=== PATIENT | male | born 1980 | race Caucasian/White ===

== ENCOUNTER 2025-06-03 13:24 | Emergency (ER) | payer OTHER, SELFPAY ==
[2025-06-03 13:25] VITALS: BP 165/96; PULSE 95; RESP 18; TEMP 36.9; O2SAT 96; BMI 38.5
--- OUTSIDE RECORDS SUMMARY | 2025-06-03 13:32 | XMS_ITS | Patient Health Record ---
Author Organization [facility] Address [address] [facility] [address] Support Name Relationship Address Phone Mitra Fuentes Guarantor Unknown Unavaila ble Reason For Referral No Information Plan Of Treatment No Information Insurance Providers Payer Name Payer Address Payer Phone Subscriber Number Group Number Insured Name Patient Relationship to Insured Coverage Start Date Coverage End Date [facility] [address] [place] [id number] Mitra Fuentes Self - patient is the insured
--- OUTSIDE RECORDS SUMMARY | 2025-06-03 13:32 | XMS_ITS | Encounter Summary ---
Author Organization [facility] Address [address] [place] [address] Care Team Providers Care Exploration Driller Name Role Phone Kj Aldana DO Primary Care Provider + Kj Aldana DO Unavailable [phone] Kj Aldana DO Unavailable Source Comments Please be aware that You and/or your organization are solely responsible for the use, security, privacy, and any decisions made with any information you receive from [employer] Encounter Details Date Type Department Care Team (Late st Contact Info) Description 09/30/2023 [facility] Health Information Management [address] [place] [address] Provider, Not In System, COOKING TEACHER-C Provider Not in System Social History Tobacco Use Types Packs/Day Years Used Date Smoking Tobacco: Every Day Cigarettes 0.5 15 Smokeless Tobacco: Never Alcohol Use Standard Drinks/Week Comments Yes 1 (1 standard drink = 0.6 oz pur e alcohol) PHQ-2 Answer Date Recorded Patient Health Questionnaire-2 Score 0 09/27/2023 Sex and Gender Information Value Date Recorded Sex Assigned at Not on file Legal Sex Male 4:32 PM EST Gender Identity Not on file Sexual Orientation Not on file documented as of this encounter Plan of Treatment Not on file documented as of this encounter Visit Diagnoses Not on filedocumented in this encounter Additional Health Concerns Assessment Noted Time A fall risk assessment has been complete d for the patient 09/27/2023 1:13 PM EST documented as of this encounter Care Teams Exploration Driller Relationship Specialty Start Date End Date Kj Aldana DO PCP - General Family Medicine 08/13/23 Kj Aldana DO [address] [facility] [address] [place] [address] PCP - [facility] Community Care Attributed Provider 12/29/23 11/26/24 Kj Aldana DO [address] [facility] [address] [place] [address] PCP - Morgan CFD Attributed Provider 09/27/24 documented as of this encounter
--- OUTSIDE RECORDS SUMMARY | 2025-06-03 13:32 | XMS_ITS | Clinical Summary ---
Author Organization [facility] Address [address] [place] [id number] Care Team Providers Care Paper Conservator Name Role Phone Kj Aldana DO Primary Care Provider + Kj Aldana DO Unavailable [phone] Allergies No known active allergies Medications Eliquis 5 MG tabletIndication s:Morbid obesity (HCC),Hypertensi on, unspecified type,Atrial fibrillation, unspecified type (HCC),Dyslipidem ia TAKE 1 TABLET BY MOUTH EVERY MORNING AND EVERY NIGHT AT BEDTIME 180 tablet 1 09/09/2024 Active fenofibrate (Tricor) 145 MG tabletIndication s:Morbid obesity (HCC),Hypertensi on, unspecified type,Atrial fibrillation, unspecified type (HCC),Dyslipidem ia Take 1 tablet (145 mg total) by mouth 1 (one) time each day. 90 tablet 09/17/2024 Active metoprolol succinate XL (Toprol-XL) 25 MG 24 hr tabletIndication s:Morbid obesity (HCC),Hypertensi on, unspecified type,Atrial fibrillation, unspecified type (HCC),Dyslipidem ia TAKE 1 TABLET(25 MG) BY MOUTH 1 TIME EACH DAY 90 tablet 09/17/2024 Active olmesartan-hydro CHLOROthiazide (BENIcar HCT) 40-12.5 MG tabletIndication s:Morbid obesity (HCC),Hypertensi on, unspecified type,Atrial fibrillation, unspecified type (HCC),Dyslipidem ia Take 1 tablet by mouth 1 (one) time each day. 90 tablet 1 09/17/2024 Active Active Problems No known active problems Encounters Date Type Department Care Team Description 04/20/2025 Orders Only [facility] Internal Medicine [address] [place] [address] Kj Aldana, Morbid (severe) obesity due to excess calories (Primary Dx) from Last 3 Months Social History Tobacco Use Types Packs/Day Years Used Date Smoking Tobacco: Every Day Cigarettes 0.5 15 Smokeless Tobacco: Never Tobacco Cessation:Ready to Q uit: Not Asked; Counseling Given: Not Answered Alcohol Use Standard Drinks/Week Comments Yes 1 (1 standard drink = 0.6 oz pur e alcohol) AUDIT-C Answer Date Recorded Q1: How often do you have a drink containing alc ohol? 2-4 times a month 11/28/2023 Q2: How many drinks containi ng alcohol do you have on a typical day when you are drinking? 1 or 2 11/28/2023 Frequency of Binge Drinking Not on file 07/2023 PHQ-2 Answer Date Recorded Patient Health Questionnaire-2 Score 0 10/01/2024 Sex and Gender Information Value Date Recorded Sex Assigned at Not on file Legal Sex Male 4:32 PM EST Gender Identity Not on file Sexual Orientation Not on file Last Filed Vital Signs Vital Sign Reading Time Taken Comments Blood Pressure 122/66 10/01/2024 8:05 AM EST Pulse 82 10/01/2024 8:05 AM EST Temperature 36.8 C (98.3 F) 10/01/2024 8:05 AM EST Respiratory Rate 18 11/28/2023 11:29 AM EDT Oxygen Saturation 97% 10/01/2024 8:05 AM EST Inhaled Oxygen Concentration - - Weight 142 kg (314 lb) 10/01/2024 8:05 AM EST Height 185.4 cm (6' 1 ) 10/01/2024 8:05 AM EST Body Mass Index 41.43 10/01/2024 8:05 AM EST Plan of Treatment Health Maintenance Due Date Last Done Comments CT Colonography 1980 Cologuard 1980 Colonoscopy 1980 Colorectal Cancer Screening 1980 FIT 1980 FOBT 1980 HIV Screening 1980 Sigmoidoscopy 1980 MMR Vaccines (1 of 1 - Standard series) 02/12/1981 Varicella Vaccines (1 of 2 - 13+ 2-dose series) 02/12/1993 DTaP/Tdap/Td Vaccines (1 - Tdap) 02/12/1999 Hepatitis B Vaccines (1 of 3 - 19+ 3-dose series) 02/12/1999 Pneumococcal: Pediatrics (0 to 5 Yrs) and At-Risk Patients (6 to 49 Years) (1 of 2 - PCV) 02/12/1999 HPV Vaccines (1 - 3-dose SCD M series) 02/12/2007 COVID-19 Vaccine (1 - 2023-2 5 season) 2025 Influenza Vaccine (#1) 2025 Depression Screening 10/01/2025 10/01/2024 Obesity Intervention 10/01/2025 10/01/2024, 09/04/2024, 09/27/2023 Annual Physical 10/02/2025 10/01/2024 Diabetes Screening 09/20/2027 09/20/2024, 11/19/2023, 11/19/2023 Lipid Panel 09/20/2029 09/20/2024, 11/19/2023 Zoster Vaccines (1 of 2) 02/12/2030 Respiratory Syncytial Virus (RSV) 60 years and older and/or patients (1 - 1-dose 75+ series) 02/12/2055 Hepatitis A Vaccines Aged Out No long er eligible based on patient's age to complete this topic Meningococcal B Vaccine Aged Out No l onger eligible based on patient's age to complete this topic Meningococcal Vaccine Aged Out No flavia gary eligible based on patient's age to complete this topic Respiratory Syncytial Virus (RSV) <20 months Aged Out No longer eligible b ased on patient's age to complete this topic Procedures Procedure Name Priority Date/Time Associated Diagnosis Comments COMPREHENSIVE METABOLIC PANEL Routine 09/20/2024 7:17 AM EST Morbid obesity Hypertension, unspecified type LIPID PANEL Routine 09/20/2024 7:17 AM EST Morbid obesity Hypertension, unspecified type from Last 3 Months or Most Recently Relevant to Health Maintenance Results * (ABNORMAL) Lipid Panel (09/20/2024 7:17 AM EST) Triglycerides 242(H) <=150 mg/dL 09/20/2024 8:44 AM EST [facility] Cholesterol, Total 149.00 0.00 - 200.00 mg/dL 09/20/2024 8:44 AM EST [facility] HDL Cholesterol 33.40(L) >=40.00 mg/dL 09/20/2024 8:44 AM EST [facility] LDL Cholesterol, Calc 67.2 <=130.0 mg/dL 09/20/2024 8:44 AM EST [facility] Comment: Reference range <130 Normal 130-150 Borderline >159 High Risk Chol/HDL Ratio 4.5 09/20/2024 8:44 AM EST [facility] LDL/HDL Ratio 2.0 09/20/2024 8:44 AM EST [facility] VLDL, Calculated 48 mg/dL 09/20/19 8:44 AM EST [facility] Non-HDL Cholesterol 116 mg/dL 09/20/2024 8:44 AM EST [facility] Blood Venous blood specimen / Unknown Venipuncture / Unknown 09/20/2024 7:17 AM EST 09/20/2024 7:17 AM EST us Kj Aldana DO LAB BLOOD ORDERABLES Fin al Result [facility] [address] [place] [address], * Comprehensive Metabolic Panel (CMP) (09/20/2024 7:17 AM EST) Sodium 138 136 - 145 mmol/L 09/20/2024 8:44 AM EST [facility] Potassium 3.7 3.5 - 5.1 mmol/L 09/20/2024 8:44 AM EST [facility] Chloride 103 98 - 107 mmol/L 09/20/2024 8:44 AM EST [facility] Carbon Dioxide 23.5 22.0 - 29.0 mmol/L 09/20/2024 8:44 AM [facility] Anion Gap 12 3 - 20 mmol/L 09/20/2024 8:44 AM [facility] BUN 23.7 6.0 - 26.0 mg/dL 09/20/2024 8:44 AM [facility] Creatinine 0.80 0.70 - 1.20 mg/dL 09/20/2024 8:44 AM [facility] BUN/Creatinine Ratio 29.6 09/20/2024 8:44 AM [facility] Glucose 104 70 - 109 mg/dL 09/20/2024 8:44 AM [facility] Calcium 8.9 8.6 - 10.0 mg/dL 09/20/2024 8:44 AM [facility] AST 34 0 - 40 U/L 09/20/2024 8:44 AM [facility] ALT 34 0 - 41 U/L 09/20/2024 8:44 AM [facility] Alkaline Phosphatase 47 40 - 130 U/L 09/20/2024 8:44 AM [facility] Protein, Total 7.8 6.6 - 8.7 g/dL 09/20/2024 8:44 AM [facility] Albumin 3.90 3.50 - 5.20 g/dL 09/20/2024 8:44 AM [facility] Globulin 3.9 g/dL 09/20/2024 8:44 AM [facility] A/G Ratio 1.0 09/20/2024 8:44 AM [facility] Bilirubin, Total 0.43 0.00 - 1.20 mg/dL 09/20/2024 8:44 AM [facility] Osmolality Calc 271 mosm/kg 8:44 AM [facility] eGFR 111.9 >=60.0 mL/min/{1. 73_m2} 09/20/2024 8:44 AM [facility] Comment: GFR calculated based on CKD-EPI 2020 Creatinine Equation Age (Years) Average GFR 20-29 116 mL/min/1.73 m2 30-39 107 mL/min/1.73 m2 40-49 99 mL/min/1.73 m2 50-59 93 mL/min/1.73 m2 60-69 85 mL/min/1.73 m2 70+ 75 mL/min/1.73 m2 Acceptable GFR: >= 60 mL/min/1.73 m2 Chronic Kidney Disease: <60 mL/min/1.73 m2 Kidney Failure: <15 mL/min/1.73 m2 Blood Venous blood specimen / Unknown Venipuncture / Unknown 09/20/2024 7:17 AM EST 09/20/2024 7:17 AM EST Kj Aldana DO LAB BLOOD ORDERABLES Fin al Result [address] [id number] from Last 3 Months or Most Recently Relevant to Health Maintenance Insurance [employer] Care Teams Paper Conservator Relationship Specialty Start Date End Date Kj Aldana DO PCP - General Family Medicine 08/13/23 Kj Aldana DO [address] [facility] [address] [place] [address] PCP - Morgan CFD Attributed Provider 09/27/24
--- OUTSIDE RECORDS SUMMARY | 2025-06-03 13:32 | XMS_ITS | Encounter Summary ---
Author Organization [facility] Address [address] [place] [address] Care Team Providers Care Healthcare Network Consultant Name Role Phone Kj Aldana DO Primary Care Provider + Kj Aldana DO Unavailable [phone] Kj Aldana DO Unavailable [phone] Source Comments Please be aware that You and/or your organization are solely responsible for the use, security, privacy, and any decisions made with any information you receive from [employer] Encounter Details Date Type Department Care Team (Late st Contact Info) Description 09/30/2023 [facility] Health Information Management [address] [place] [address] Provider, Not In System, SENIOR OFFICE SUPPORT ASSISTANT SOSA-C Provider Not in System Social History Tobacco [...] documented as of this encounter Care Teams Healthcare Network Consultant Relationship Specialty Start Date End Date Kj Aldana DO PCP - General Family Medicine 08/13/23 Kj Aldana DO [address] [facility] [address] [place] [address] PCP - PCN-[facility] Community Care Attributed Provider 12/29/23 11/26/24 Kj Aldana DO [address] [facility] [address] [place] [address] PCP - Morgan CFD Attributed Provider 09/27/24 documented as of this encounter
--- NOTE | 2025-06-03 14:43 | XR_ITS ---
WS: [id number] views of the left first finger, 06/03/2025 Clinical Data: thumb laceration Comparison: None. Findings: No fractures or dislocations are seen. Radiopaque material is on the soft tissue adjacent to the ungual tuft of the distal phalanx. The soft tissues are normal. The joint spaces are not remarkable. XR/XR finger LT min 2V 13083 Impression: Negative for fracture or dislocation of the left thumb.
--- NOTE | 2025-06-03 14:57 | W.ED.WOUNDLC ---
HPI - Wound/Laceration General: Chief Complaint: Wound/Laceration Stated Complaint: L Hand thum cut Time Seen by Provider: 06/03/25 14:28 Source: patient Mode of arrival: ambulatory Limitations: language barrier History of Present Illness: Patient is a 45-year-old male who presents the emergency department after suffering laceration to left thumb. States he cut himself while cutting a piece of tape, sheared off the distal tuft of the finger involving the nail, with nail matrix intact. No active bleeding at this time. He is Qatari-speaking so difficult to obtain full history and review of systems for the language barrier. However he is able to indicate that his pain is very mild, tetanus not up-to-date. No blood thinner. Onset (ago): minute(s) Extremity Location: Left: hand (thumb) Patient tetanus UTD: No Context: accidental Related Data Home Medications ?Medication ?Instructions ?Recorded ?Confirmed apixaban 5 mg tablet (Eliquis) 5 mg PO BID 06/03/25 06/03/25 fenofibrate nanocrystallized 145 145 mg PO DAILY 06/03/25 06/03/25 mg tablet metoprolol succinate 25 mg 25 mg PO DAILY 06/03/25 06/03/25 tablet,extended release 24 hr olmesartan 40 1 tab PO DAILY 06/03/25 06/03/25 mg-hydrochlorothiazide 12.5 mg tablet Previous Rx's ?Medication ?Instructions ?Recorded amoxicillin 875 mg-potassium 1 tab PO BID 7 days #14 tabs 06/03/25 clavulanate 125 mg tablet Allergies Allergy/AdvReac Type Severity Reaction Status Date / Time No Known Allergies Allergy Verified 06/03/25 13:32 Review of Systems General: Reports: Other (unobtainable for language barrier) Physical Exam Const: COMMON NORMALS: no acute distress, average body habitus, patient oriented x3, healthy appearing, alert and well nourished EXAM LIMITATIONS: language barrier HENMT: COMMON NORMALS: normocephalic and atraumatic HEAD & SCALP: normocephalic and atraumatic Neck/C-Spine: COMMON NORMALS: full ROM, no lymphadenopathy, supple and no meningeal signs Extremity: COMMON NORMALS: full ROM and capillary refill normal Neuro: COMMON NORMALS: patient oriented x3, moves all extremities, no focal motor deficits and no sensory deficits noted SENSORIUM/ORIENTATION: Yes alert MENINGEAL SIGNS: Yes no meningeal signs Skin: COMMON NORMALS: turgor normal NARRATIVE SKIN EXAM: Injury to distal left thumb appears to be a shear type laceration measuring approximately 2 cm in length, overall superficial but does involve the nail. Nail matrix intact, no nail avulsion. No active bleeding. GENERAL SKIN EXAM: turgor normal Course Vital Signs: Vital signs: Vital Signs Temperature 98.5 F 06/03/25 13:25 Pulse Rate 80 06/03/25 15:37 Respiratory Rate 18 06/03/25 13:25 Blood Pressure 162/96 06/03/25 15:37 Pulse Oximetry 98 06/03/25 15:37 Oxygen Delivery Me thod Room Air 06/03/25 13:25 MDM - Wound/Laceration Medical Decision Making Patient is primarily Qatari-speaking, presents after injuring thumb while slicing piece tape. This was a shear type laceration that appeared to not benefit from any suture closure, and though there was injury to the nail plate there is no injury to the nailbed or nail matrix. The wound was thoroughly irrigated here in the emergency department, the x-ray, while not showing any fracture or dislocation, showed a tiny foreign body object that was irrigated in the emergency department. Pressure dressing applied as there was mild bleeding during the cleaning process, but otherwise has sterile dressing placed and will be started on prophylactic Augmentin. His tetanus is also updated today. With translation, lined out return precautions for him to monitor for and return if any arise. He endorses understanding. Lab Data Radiology Impressions Finger X-Ray 06/03/25 14:43 Impression: Negative for fracture or dislocation of the left thumb. All radiology interpretation(s) finalized by discharge Discharge Plan Discharge Patient Disposition: Home Clinical Impression: Laceration of left thumb Qualifiers: Encounter type: initial encounter Damage to nail status: with damage Foreign body presence: without foreign body Qualified Code(s): S61.112A - Laceration without foreign body of left thumb with damage to nail, initial encounter Condition: Stable Prescriptions: New amoxicillin-pot clavulanate 875-125 mg tablet 1 tab PO BID 7 Days Qty: 14 0RF No Action metoprolol succinate 25 mg tablet extended release 24 hr 25 mg PO DAILY olmesartan-hydrochlorothiazide 40-12.5 mg tablet 1 tab PO DAILY fenofibrate nanocrystallized 145 mg tablet 145 mg PO DAILY Eliquis 5 mg tablet 5 mg PO BID Discharge Orders: Discharge ED (Routine); Ordered 06/03/25 Ordered By: Sukh Dia Patient Instructions: Patient Portal & Wallace Instructions Activity Restrictions/Additional Instructions: Thumb Laceration Discharge Wound Care Instructions: - Keep the pressure dressing clean, dry, and intact for the first 24 hours. After 24 hours, you may gently remove the dressing and inspect the wound. - Clean the wound daily with tap water. Avoid using hydrogen peroxide, alcohol, or iodine, as these can delay healing and irritate the skin. - After cleaning, apply a thin layer of plain petroleum jelly (such as Vaseline) or a non-antibiotic ointment, then cover with a clean, non-stick, occlusive dressing (such as a bandage or gauze pad with tape). A moist environment helps wounds heal faster and reduces pain. - Change the dressing once daily or sooner if it becomes wet or dirty. Pain Control: - For pain, use acetaminophen (Tylenol) or ibuprofen (Advil, Motrin) as directed on the package. Avoid aspirin unless recommended by your doctor. - Elevate your hand above heart level as much as possible to reduce swelling and discomfort. Antibiotics: - Take amoxicillin-clavulanate (Augmentin) as prescribed, twice daily for one week. Finish the entire course, even if the wound appears healed. Return Precautions: Contact your healthcare provider or return to the emergency department immediately if you notice any of the following: - Increasing redness, warmth, or swelling around the wound - Pus or foul-smelling drainage - Fever or chills - Red streaks spreading from the wound - Severe pain not controlled by [id number] medication - Loss of movement or sensation in the thumb Other Instructions: - You may gently wash your hand with soap and water after the first 24 hours, but avoid soaking the wound. - Avoid heavy use of the thumb until the wound is fully healed. - If you have not had a tetanus booster in the past 10 years, arrange to receive one. Follow-up: - Schedule a follow-up appointment as directed by your provider, or sooner if you have any concerns. If you have any questions or concerns about your wound or medications, please contact your healthcare provider. Print Language: Qatari Coding Level of Care Code ED Motor Setter for Torito Christine
--- NOTE | 2025-06-03 15:03 | PC.NURSE ---
IRRIGATED WOUND WITH STERILE WATER
[2025-06-03] MEDS: tetanus-dipt-pertussis 0.5 mL SDV IM (15:12)
--- NOTE | 2025-06-03 15:24 | PC.PHAR ---
Pt speaks very little pakistani. Verified current med list with [facility] in [facility] [phone]
[2025-06-03 15:37] VITALS: BP 162/96; PULSE 80; O2SAT 98
== END 2025-06-03 15:38 | disposition home or self-care (01) ==
PROVIDERS: Emergency Provider Physician Assistant
DX: S61.112A Laceration without foreign body of left thumb with damage to nail, initial encounter (principal); Z79.01 Long term (current) use of anticoagulants; W26.9XXA Contact with unspecified sharp object(s), initial encounter
CPT/HCPCS: 73140; 90715; 99283